=== PATIENT | male | born 1995 | race Caucasian/White ===

== ENCOUNTER 2020-10-16 11:32 | Emergency (ER) | payer SELFPAY ==
[2020-10-16] MEDS ORDERED: Lidocaine 1% with EPINEPHrine 1:100,000 20 ML MDV INFILT ONE (11:33)
[2020-10-16] MEDS ORDERED: Lidocaine 2% 20 ML MDV INFILT ONE (11:33)
[2020-10-16] MEDS ORDERED: Diphtheria,Pertussis(Acell),Tetanus Vaccine 0.5 ML Syringe IM ONE (12:08)
[2020-10-16] MEDS ORDERED: cefTRIAXone 1 GM Vial IM ONE (12:08)
[2020-10-16] MEDS ORDERED: Acetaminophen/HYDROcodone 325-5 MG Tab PO ONE (12:09)
--- NOTE | 2020-10-16 12:12 | EDM.PDOC ---
ED HPI GENERAL MEDICAL PROBLEM - General Chief Complaint: Upper Extremity Injury/Pain Stated Complaint: LAVERATION TO FINGERS Time Seen by Provider: 10/16/20 11:40 Source of Information: Reports: Patient History Limitations: Reports: No Limitations - History of Present Illness INITIAL COMMENTS - FREE TEXT/NARRATIVE: Sent in from Work Was moving a machine , and his right fingers got caught in a jason , he sustained an avulsion of the right 3rd finger nail and injury to the right 5th finger and index finger has a laceration Onset: Today, Sudden Onset Date: 10/16/20 Location: Reports: Upper Extremity, Right Quality: Reports: Ache, Dull, Throbbing Severity: Moderate Worsens with: Reports: Movement Context: Reports: Trauma (at wrok) Associated Symptoms: Reports: No Other Symptoms 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: Other (see below) Other Treatments 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 SALES MANAGER: Ice and bandage Right Finger-Index Pain Score (Numeric/FACES): 9 - Related Data Allergies Allergy/AdvReac Type Severity Reaction Status Date / Time No Known Allergies Allergy Verified 10/16/20 11:51 Home Meds: Home Meds Acetaminophen/HYDROcodone [[place] 325-5 MG] 1 tab PO Q6H PRN #10 tab 10/16/20 [Rx] Sulfamethoxazole/Trimethoprim [Bactrim Ds Tablet] 1 each PO BID #28 tablet 10/16/20 [Rx] Review of Systems - Review of Systems Review Of Systems: See Below Constitutional: Reports: No Symptoms Eyes: Reports: No Symptoms Ears: Reports: No Symptoms Nose: Reports: No Symptoms Mouth/Throat: Reports: No Symptoms Respiratory: Reports: No Symptoms Cardiovascular: Reports: No Symptoms GI/Abdominal: Reports: No Symptoms Genitourinary: Reports: No Symptoms Musculoskeletal: Reports: Hand Pain (tip of 3rd finger and the 4th finger) Skin: Reports: Wound (3rd and 4th fingers) Neurological: Reports: No Symptoms Psychiatric: Reports: No Symptoms ED EXAM, GENERAL - Physical Exam Exam: See Below Exam Limited By: No Limitations General Appearance: Alert, WD/WN, No Apparent Distress Ears: Normal External Exam Nose: Normal Inspection Throat/Mouth: Normal Inspection Head: Atraumatic, Normocephalic Neck: Normal Inspection, Supple, Non-Tender Respiratory/Chest: No Respiratory Distress Cardiovascular: Normal Peripheral Pulses GI/Abdominal: Soft, Non-Tender Back Exam: CVA Tenderness (R), CVA Tenderness (L) Extremities: Other (right hasn : 3rd finger with nail completely removed from nailbed and surrounding tissue, laceration in the dc surface of the index finger on the ri : linear about 2.5 cm long, bleeding , well approximated , 4th finger with excision of the skin on ther dorsum of the finger) Neurological: Alert, Oriented, CN II-XII Intact Psychiatric: Normal Affect Skin Exam: Warm, Intact ED TRAUMA EXTREMITY PROCEDURES - Laceration/Wound Repair Right Digit - 2nd (Index) Lac/Wound Length In cm: 2.5 Appearance: Superficial, Linear, Clean Distal NVT: Neuro & Vascular Intact, No Tendon Injury Anesthetic Type: Local Local Anesthesia - Lidocaine (Xylocaine): 1% with EPI Local Anesthetic Volume: 2cc Skin Prep: Chlorhexidine (Hibiciens), Sterile Drape Closed With: Sutures Suture Size: 4-0 # of Sutures: 6 Suture Type: Prolene, Interrupted Sterile Dressing Applied: Nurse Tetanus Status Addressed: Yes Complications: No Right Digit - 3rd (Middle) Lac/Wound Length In cm: 2 (avulsion of nail) Appearance: Superficial, Clean Distal NVT: Neuro & Vascular Intact Anesthetic Type: Digital Local Anesthesia - Lidocaine (Xylocaine): 2% Plain Local Anesthetic Volume: 4cc Skin Prep: Chlorhexidine (Hibiciens) Exploration/Debridement/Repair: No Foreign Material Found Suture Size: 3-0 # of Sutures: 4 (area of bleeding nail bed to control bleeding) Repaired With: Chromic Sterile Dressing Applied: Nurse Tetanus Status Addressed: Yes Complications: No Course - Vital Signs Last Recorded V/S: Last Vital Signs Temp 36.8 C 10/16/20 11:33 Pulse 72 10/16/20 14:35 Resp 18 10/16/20 14:35 BP 138/84 10/16/20 14:35 Pulse Ox 98 10/16/20 14:35 - Orders/Labs/Meds Meds: Medications Discontinued Medications Generic Name Dose Route Start Last Admin Trade Name Freq PRN Reason Stop Dose Admin Hydrocodone Bitart/Acetaminophen 1 tab 10/16/20 12:09 10/16/20 12:23 Acetaminophen/Hydrocodone 325-5 Mg Tab PO 10/16/20 12:10 1 tab ONETIME ONE Administration Ceftriaxone Sodium 1 gm 10/16/20 12:08 10/16/20 12:36 Ceftriaxone 1 Gm Vial IM 10/16/20 12:09 1 gm ONETIME ONE Administration Diphtheria/Tetanus/Acell Pertussis 0.5 ml 10/16/20 12:08 10/16/20 12:31 Diphtheria,Pertussis(Acell),Tetanus Vaccine 0.5 Ml Syringe IM 10/16/20 12:09 0.5 ml .ONCE ONE Administration - Re-Assessments/Exams Free Text/Narrative Re-Assessment/Exam: 10/17/20 03:02 Hand soaked in chlorhexidine . the debridement done on the middle finger and index finger. Attempts made to stop bleeding with cautery on the middle finger : not successful So sutures were placed to controlled bleeding in the middle finger laceration of the index finger repaired with 6 sutures Wound dressing applied Pt also had rocephin, toradol and [place] for pain Departure - Departure Time of Disposition: 14:38 Disposition: Home, Self-Care 01 Clinical Impression: Avulsion of nail plate Traumatic avulsion of nail plate of finger Qualifiers: Encounter type: initial encounter Qualified Code(s): S61.309A - Unspecified open wound of unspecified finger with damage to nail, initial encounter Laceration of finger of right hand without damage to nail Qualifiers: Finger: index finger Foreign body presence: without foreign body - Discharge Information *PRESCRIPTION DRUG MONITORING PROGRAM REVIEWED*: Not Applicable *COPY OF PRESCRIPTION DRUG MONITORING REPORT IN PATIENT CATHRYN: Not Applicable Prescriptions: Sulfamethoxazole/Trimethoprim [Bactrim Ds Tablet] 1 each PO BID #28 tablet Acetaminophen/HYDROcodone [[place] 325-5 MG] 1 tab PO Q6H PRN #10 tab PRN Reason: Pain (Severe 7-10) Instructions: Nail Avulsion, Laceration Care, Adult, [id number], Nail Bed Injury, [id number], Nonsutured Laceration Care Referrals: PCP,Wilberto [Primary Care Provider] - [facility] [Provider Group] (Pt needs to be seen by HAND SURGEON) Forms: ED Department Discharge Additional Instructions: 1) Make appointment to see your PCP in 3-4 days , you may need referral to a hand surgeon 2) Wound Care : change wound dressing on day 3 3) See Hand surgeon for follow up 4) Take tylenol for pain as needed till see by PCP or hand surgeon Sepsis Event Note (ED) - Evaluation Sepsis Screening Result: No Definite Risk
--- NOTE | 2020-10-16 17:35 | CR ---
INDICATION: Injury - caught 2nd and 3rd fingers in a jason. RIGHT HAND [id number]: Three-views of the right hand reveal evidence of soft tissue injury at the tips of the 2nd and 3rd fingers. No underlying bone or joint abnormality was identified. MALUD
== END 2020-10-16 14:38 | disposition home or self-care (01) ==
LOC: FB.ED 11:32
DX: S61.312A Laceration without foreign body of right middle finger with damage to nail, initial encounter (principal); S61.310A Laceration without foreign body of right index finger with damage to nail, initial encounter; Z23 Encounter for immunization; W23.0XXA Caught, crushed, jammed, or pinched between moving objects, initial encounter
CPT/HCPCS: 11730; 12001; 73130; 90471; 90715; 96372; 99283; A9270; J0696